=== PATIENT | male | born 1955 | race Caucasian/White ===

== ENCOUNTER 2019-02-08 16:04 | Emergency (ER) | payer OTHER ==
[~2019-02-08] VITALS: Ht 167.6 cm; Wt 90.7 kg
[2019-02-08 16:20] VITALS: BP 131/74; PULSE 67; RESP 20; Ht 167.6 cm; Wt 90.7 kg
[2019-02-08] MEDS ORDERED: IBUP-1542 PO (18:39)
--- NOTE | 2019-02-09 00:20 | ERD ---
ER Documentation Chief Complaint Chief Complaint r ankle pain/swelling after twisting ankle 3 days ago HPI 63-year-old male patient with no significant past medical history presents to ED complaining of right ankle and foot pain after he twisted it on an uneven curb. Reports that this happened about 3 days ago. Describes his pain as a pressure sensation. Rates his pain a 6 out of 10. Denies any loss sensation, loss of range of motion, fever, chills, nausea, vomiting, increased redness or swelling. Denies any head or neck complaints. ROS All systems reviewed and are negative except as per history of present illness. Medications Home Meds Active Scripts Ibuprofen* (Motrin*) 600 Mg Tab, 600 MG PO Q6, #30 TAB phil con comida Prov:KYMBERLY HANLEY PA-C 02/08/19 PMhx/Soc Medical and Surgical Hx: pt denies Medical Hx, pt denies Surgical Hx Hx Alcohol Use: No Hx Substance Use: No Hx Tobacco Use: No Smoking Status: Never smoker FmHx Family History: No diabetes, No coronary disease Physical Exam Vitals Vital Signs Date Temp Pulse Resp B/P (MAP) Pulse Ox O2 O2 Flow FiO2 Time Delivery Rate 02/08/19 98.8 67 20 131/74 97 16:20 (93) Physical Exam Const: [id number], well-nourished. In no acute distress. Head: Atraumatic, normocephalic Eyes: Normal Conjunctiva without injection ENT: Normal external ear, nose and mouth. Neck: Full range of motion. No meningismus. Resp: Clear to auscultation bilaterally. No wheezing, rhonchi, rales, or crackles. No accessory muscle use. No retractions. Cardio: Regular rate and rhythm, no murmurs Skin: No petechiae or rashes Back: No midline tenderness. No CVA tenderness. Ext: No cyanosis, or edema. Cap refill less than 2 seconds. Distal pulses intact bilaterally. Limited range of motion with dorsiflexion, plantar flexion however patient still able to have range of motion of his right ankle. Tenderness palpation of the right lateral malleolus with no erythema noted. Slight edema noted. Neur: Awake and alert. Normal gait and coordination. Muscle strength 5/5. Sensation intact bilaterally. Psych: Normal Mood and Affect Procedures/MDM 63-year-old male patient with no significant past medical history presents to ED complaining of right ankle pain after actually twisting it. Patient is afebrile and nontoxic-appearing. Right ankle, foot x-ray was ordered to further evaluate patient. IMPRESSION: 1. Nondisplaced fracture of the distal tip of the fibula, below the ankle joint. 2. Soft tissue swelling. Likely ankle effusion. IMPRESSION: Soft tissue swelling over the lateral malleolus. No foot fracture identified. Patient is placed in a posterior ankle splint. Splint Assessment: Neurovascularly intact pre and post splint placement with good fit. Nondisplaced fracture of the distal tip of the fibula. Patient's extremity symptoms have stabilized while they have been evaluated in the department and are appropriate for outpatient follow up. No evidence of fractures, dislocation s, compartment syndrome, neurologic injury, vascular injury, open joint, open fracture, tendon laceration, septic arthritis, osteomyelitis, DVT, foreign body, or other emergent conditions. Diagnosis: Ankle Injury Discharge medications: Ibuprofen Follow up with primary care physician in 1-2 days for a referral to see an orthopedic physician. Instructed patient to return to the ED sooner for any worsening symptoms. Patient's questions were answered. Patient is hemodynamically stable. Patient understood and agreed with discharge plan. Patient discharged stable. Disclaimer: Inadvertent spelling and grammatical errors are likely due to EHR/dictation software use and do not reflect on the overall quality of patient care. Also, please note that the electronic time recorded on this note does not necessarily reflect the actual time of the patient encounter. Departure Diagnosis: Primary Impression: Ankle injury Encounter type: initial encounter Laterality: right Qualified Codes: S99.911A - Unspecified injury of right ankle, initial encounter Condition: Stable Patient Instructions: Fracture, Ankle (General) Referrals: [facility] Urgent Care 7 a.m.- 11 p.m. Every Day of the Week NO APPOINTMENT OR AUTHORIZATION NEEDED COMMUNITY CLINIC () Usted se self hecho un examen mdico de control que le indica que no est en christian condicin que requiera tratamiento urgente en el Departamento de Emergencia. Un estudio ms profundo y el tratamiento de lentz condicin pueden esperar sin ningn riesgo hasta que usted sea atendida/o en el consultorio de lentz mdico o christian clnica. Es responsabilidad suya arreglar christian emanuel para el seguimiento del marshall. MANEJO DE CONDICIONES NO URGENTES EN EL FUTURO 1) Si usted tiene un mdico de atencin primaria: Usted debera llamar a lentz mdico de atencin primaria antes de venir al departamento de emergencia. Despus de las horas de consultorio, lentz doctor o lentz asociado/a est disponible por telfono. El mdico o enfermero de kayleigh en el servicio telefnico puede asesorarle por paco medio para atender el problema, o marshall contrario se puede programar christian emanuel. 2) Si usted no tiene un mdico de atencin primaria: Llame al mdico o clnica de referencia que aparece abajo jose las horas de consultorio para hacer christian emanuel para que le vean. CLINICAS: [facility] [phone] [facility] [phone] [facility]. [facility] [phone] [facility]. [place] [id number] [phone] [facility] [place] [phone] [facility]. [phone] [address] [facility] Hours: Mon-Fri 9:00 AM - 5:00 PM [facility] () Usted se self hecho un examen mdico de control que le indica que no est en christian condicin que requiera tratamiento urgente en el Departamento de Emergencia. Un estudio ms profundo y el tratamiento de lentz condicin pueden esperar sin ningn riesgo hasta que usted sea atendida/o en el consultorio de lentz mdico o christian clnica. Es responsabilidad suya arreglar christian emanuel para el seguimiento del marshall. MANEJO DE CONDICIONES NO URGENTES EN EL FUTURO 1) Si usted tiene un mdico de atencin primaria: Usted debera llamar a lentz mdico de atencin primaria antes de venir al departamento de emergencia. Despus de las horas de consultorio, lentz doctor o lentz asociado/a est disponible por telfono. El mdico o enfermero de kayleigh en el servicio telefnico puede asesorarle por paco medio para atender el problema, o marshall contrario se puede programar christian emanuel. 2) Si usted no tiene un mdico de atencin primaria: Llame al mdico o condado institucions de referencia que aparece abajo jose las horas de consultorio para hacer christian emanuel para que le vean. SI USTED NO PUEDE PAGAR PARA CAROLIN UN MEDICO puede ir a: [facility] [address] [place] [address] [facility] [address] [place] [address] [facility] [address] [place] [address] [facility] [address] [place], [place] [id number] Additional Instructions: Llame al doctor MAANA y jasmin christian EMANUEL PARA DENTRO DE 2-3 PEARCE para christian derivacin para carolin a un mdico ortopdico.Dgale a la secretaria que nosotros le instruimos hacer esta emanuel.Avise o llame si lentz condicin se empeora antes de la emanuel. Regresa aqui si peor o no mejor. KYMBERLY HANLEY PA-C Feb 09, 2019 00:20
== END 2019-02-08 19:20 | disposition home or self-care (01) ==
LOC: FTE 16:04
DX: S99.911A Unspecified injury of right ankle, initial encounter (principal); X50.1XXA Overexertion from prolonged static or awkward postures, initial encounter; Y92.9 Unspecified place or not applicable
CPT/HCPCS: 73630